=== PATIENT | female | born 1990 | race Caucasian/White ===

== ENCOUNTER → 2016-11-01 12:24 | Observation (INO) ==
[2016-11-01 12:24] LABS: Bilirubin,Urine Negative (Negative); Blood,Urine Negative (Negative); Clarity,Urine Cloudy (Clear); Color,Urine Yellow (Yellow); Glucose,Urine (UA) Normal (Normal); Ketones,Urine Negative (Negative); Leukocyte Esterase,Urine Negative (Negative); Nitrite,Urine Negative (Negative); PH,Urine 7.5 pH Units (5.0-8.0); Protein,Urine Negative (Neg-Trace); Specific Gravity,Urine 1.011 (1.010-1.025); Urobilinogen,Urine Normal (Normal)
[2016-11-01 12:26] LABS: Bacteria,Urine None Seen per hpf (None-Few); Hyaline Casts,Urine None Seen per lpf (None-Few); RBC,Urine 0-3 per hpf (0-3); Squamous Epithelial Cell,Urine Many per lpf (None-Few); WBC,Urine 0-3 per hpf (0-3)
--- NOTE | 2016-11-01 12:42 | Discharge Summary ---
Date of Encounter: 11/01/16 Time of Encounter: 12:13 - Discharge Diagnosis (1) Vaginal bleeding in Priority: Primary Status: Acute Comments: Patient arrives to labor and delivery from the office. She had vaginal bleeding yesterday and then had intercourse. She has not had any vaginal bleeding or discharge since. She states positive movement. She denies headache, epigastric pain, and visual disturbances. (2) Non-stress test reactive Priority: Secondary Status: Acute Comments: Reactive NST baseline 135 with moderate variability and 15 x 15 accels with no decels. Category I tracing. - Discharge Medications Home Medications: [id number]/Iron Fumarate/FA/Dss [ 19 Tablet] 1 tab PO DAILY 11/01/16 [ History] Allergies/Adverse Reactions: Allergies No Known Allergies Allergy (Verified 11/01/16 11:37) Data Procedures and tests throughout hospitalization: Laboratory Tests 11/01/16 11:55 Urine Color Yellow Urine Clarity Cloudy A Urine pH 7.5 Ur Specific [place] 1.011 Urine Protein Negative Urine Glucose (UA) Normal Urine Ketones Negative Urine Blood Negative Urine Nitrite Negative Urine Bilirubin Negative Urine Urobilinogen Normal Ur Leukocyte Esterase Negative Urine Microscopic RBC 0-3 Urine Microscopic WBC 0-3 Ur Squamous Epith Cells Many H Urine Bacteria None Seen Hyaline Casts None Seen Ur Culture Indicated? NO Labs on day of discharge: Labs from last 24 hours 11/01/16 11:55 Urine Color Yellow Urine Clarity Cloudy A Urine pH 7.5 Ur Specific [place] 1.011 Urine Protein Negative Urine Glucose (UA) Normal Urine Ketones Negative Urine Blood Negative Urine Nitrite Negative Urine Bilirubin Negative Urine Urobilinogen Normal Ur Leukocyte Esterase Negative Urine Microscopic RBC 0-3 Urine Microscopic WBC 0-3 Ur Squamous Epith Cells Many H Urine Bacteria None Seen Hyaline Casts None Seen Ur Culture Indicated? NO Date of admission: 11/01/16 11:25 Primary care physician: Kimberley May, Discharging clinician: Carlene Ayala Anticipated date of discharge: 11/01/16 - Patient Status Disposition: Home, Self-Care Condition: Good Functional capacity at discharge: independent ambulation - Discharge Instructions Follow Up With: Kimberley May MD [Primary Care Provider] - Jose Verdugo MD [Partnered Physician] - Additional Instructions: LABOR AND DELIVERY DISCHARGE INSTRUCTIONS Signs and Symptoms to be Reported to your Doctor Immediately: * Sudden gush, continuous or intermittent lead of fluid from vagina (note the time of gush and color of fluid) * Onset of bright red vaginal bleeding with or without pain (if you had a vaginal exam during this visit you may notice some dark red spotting. This is normal.) * Lower abdominal cramping or backache that is premenstrual-like feeling. * More than 6 contractions in one hour. * Burning during urination, having to urinate more frequently or pain in your mid-back. * A change in the baby's activity. This could be an increase or decrease in activity. * Severe headache which does not go away with tylenol. * Sudden swelling in the face, hands, arms and/or legs. * Upper abdominal pain - sometimes associated with heartburn or nausea and is not relieved by Maalox, Mylanta or Tums. * Dizziness or blurred vision or visual disturbances (seeing stars/lights). * Kick Counts One hour after a meal, lay down on one side in a quiet place. Count the number of birdie the baby moves during an hour. If less than 6 movements, notify your physician. Diet: *Force fluids - 8-10 tall glasses of fluid per day. May include popsicles and jello. *Limit caffeine - this includes chocolate, coffee, tea, any soft drink containing such as all son, Kulwant Yellow and Mountain Dew - Diet and Activity Activity: resume usual activities as tolerated Diet: regular diet Hospital Course PAYROLL ASSISTANT Time Attestation: Total time spent providing and/or coordinating discharge services: Time Spent: Less than 30 minutes Exam - Constitutional General appearance IM: cooperative, A&O X 3, pleasant - Additional comments: Uterus appropriate for gestation Reactive NST - 135 baseline with moderate variability and 15 x 15 accels with no decels. No contractions Cervical exam FT/thick/-2 SSE - no source of bleeding found. - Extremities Exam Extremities exam IM: Present: normal capillary refill, normal inspection, radial pulses palpable and symmetrical - Neurological Exam Neurological exam: alert, oriented X3
== END | disposition home or self-care (01) ==
LOC: 1NENULAB
PROVIDERS: ADMIT Obstetrics & Gynecology; ATTEND Obstetrics & Gynecology

== ENCOUNTER 2016-11-18 07:50 | Inpatient (IN) ==
[2016-11-18 07:44] LABS: Basophils % 0.2 %; Eosinophils # 0.1 K/mcL (0.0-0.6); Eosinophils % 0.8 %; Hematocrit 37.1 % (35.3-44.9); Hemoglobin 12.8 g/dL (11.5-15.4); Immature Granulocytes % 0.2 % (0-4); Lymphocytes # 3.5 K/mcL (0.6-4.6); Lymphocytes % 28.4 %; Mean Corpuscular HGB Conc 34.5 g/dL (31.6-35.5); Mean Corpuscular Hemoglobin 28.9 pg (28.0-33.3); Mean Corpuscular Volume 83.7 fL (83.0-100.0); Mean Platelet Volume 10.2 fL (9.4-12.4); Monocytes # 0.7 K/mcL (0.0-1.3); Monocytes % 5.8 %; Neutrophils # 7.9 K/mcL (1.6-8.9); Platelet Count 199 K/mcL (140-400); Red Blood Count 4.43 M/mcL (3.82-4.97); Red Cell Distribution Width 12.6 % (11.5-14.5); Segmented Neutrophils % 64.6 %
[~2016-11-18 07:50] MED LIST: Famotidine 20 MG/2 ML VIAL IVP PRN; Metoclopramide 10 MG/2 ML VIAL IVP PRN; Naloxone 0.4 MG/ML INJ IVP PRN; Penicillin G Potassium 5,000,000 UNIT in D5% in Water (Mini-Bag+) 100 ML IVPB ONE; Ringers Solution, Lactated 1,000 ML IVC SCH; Ringers Solution, Lactated 1,000 ML ONE
--- NOTE | 2016-11-18 08:47 | OB/GYN History & Physical ---
Date of Encounter: 11/18/16 Time of Encounter: 08:45 Assessment and Plan (1) premature rupture of membranes Current visit: Yes Status: Acute cont PCN for GBS ppx, allow labor to progress, if unchanged in 2 hrs, start pitocin, anticipate Qualifiers: Qualified Code(s): O42.919 - premature rupture of membranes, unspecified as to length of time between rupture and onset of labor, unspecified trimester History of Present Illness HPI: Ms. Vincent is a 26 year old female who presents to L&D with PPROM @ 5: 30AM today. She is sonia, no bleeding, feels good FM, patient on PCN Past Med Surg Social Fam HX - Past Medical History Medical history: no medical history Psychiatric history: depression - Past Surgical History Surgical History: other - Social History Smoking Status: Current every day smoker Smokeless Tobacco Status: No Alcohol use: none Drug use: none - Family History Mother Family Member Ethnicity: Non- Living Status: Hx Family Cancer: Yes (cervical and liver cancer) Obstetrical History - Pregnancies : 4 Medications and Allergies Hgm313/Iron Fumarate/FA/Dss [ 19 Tablet] 1 tab PO DAILY 11/01/16 [ History] 3 Allergy/AdvReac Type Severity Reaction Status Date / Time No Known Allergies Allergy Verified 11/01/16 11:37 Review of System OB All systems PM: reviewed and no additional remarkable complaints except as stated Exam - Constitutional Constitutional: well developed - HEENT HEENT: PERRL - Neck Neck exam: full ROM - Lungs Respiratory exam: CTAB - Cardiovascular Cardiovascular exam: RRR - Abdomen Abdomen: Present: gravid - Extremities Extremities exam: warm - Cervix Dilation: 2 Results Result Diagrams: 11/18/16 07:30 Abnormal lab results WBC 12.3 K/mcL (4.3-11.1) H 11/18/16 07:30 All other labs normal. - VTE Reasons for not Prescribing Prophylaxis: Treatment not Indicated - Low risk for VTE
[2016-11-18] MEDS ORDERED: Bupivacaine-MPF 0.25% 10 ML VIAL EP ONE (09:05)
[2016-11-18] MEDS ORDERED: Ondansetron 4 MG/2 ML VIAL IVP PRN ×2 (09:05→21:00)
[2016-11-18] MEDS ORDERED: *HR* FentaNYL (PF) 100 MCG/2 ML VIAL EP ONE (09:05)
[2016-11-18] MEDS ORDERED: Naloxone 0.4 MG/ML INJ IVP PRN ×2 (09:05→20:05)
[2016-11-18] MEDS ORDERED: EPHEDrine 50 MG/ML VIAL IVP PRN (09:05)
[2016-11-18] MEDS ORDERED: *HR* Ropivacaine/PF 0.2% 10 ML AMPUL EP ONE (09:05)
--- NOTE | 2016-11-18 09:09 | Anesthesia Evaluation PreOp ---
Date of Encounter: 11/18/16 Time of Encounter: 09:00 - Past History Planned Operation: FLAQUITA Cardiac History: Denies any Significant Hx Pulmonary History: Smoker, Pack/yr (12pk/yr) GUEST RELATIONS OFFICER History: Denies Any Significant HX Other Medical History: Hepatic (Hep C), Other (Meth use, 2015) Anesthesia History: No Prior Anesthetic Complications, Past Anesthesia ( Tonsillectomy) : Yes Alcohol Use: none Drug use: none Medications and Allergies Gtx528/Iron Fumarate/FA/Dss [ 19 Tablet] 1 tab PO DAILY 11/01/16 [ History] 3 Allergy/AdvReac Type Severity Reaction Status Date / Time No Known Allergies Allergy Verified 11/01/16 11:37 - Meds/Allergy Pre-op Review Medications Reviewed: Yes Allergies Reviewed: Yes Beta Blockers on Current Med List: No Anesthesia Results - Labs 11/18/16 07:30 Anesthesia Exam BP 114/59 P 76 T 97.7 Height: 5'0" Weight: 67kg NPO (# of Hours): 4 Pain Scale: 5 Pain Scale Used: Numeric (1 - 10) - HEENT Pupil (Motor): Pupils equal Mallampati: II Teeth: Edentulous Oral Opening: Greater than 3 - GUEST RELATIONS OFFICER LOC: Oriented GUEST RELATIONS OFFICER Motor: Normal RUE, Normal LUE, Normal RLE, Normal LLE, Normal Face GUEST RELATIONS OFFICER Sensory: Normal: RUE, LUE, RLE, LLE, Face - Cardiac Rhythm: Regular Murmur: None JVD: No Carotid Bruit: No - Pulmonary Breath Sounds: bilateral Clear Respiratory Effort: Symmetrical Anesthesia Assess/Plan ASA Score: 2 Modified Kelly Scale for Level of Consciousness: Cooperative, oriented, and tranquil Anesthetic Plan: Regional Autologous Blood: No Monitoring Plan: Standard Monitors Recovery Plan: Other
[2016-11-18] MEDS ORDERED: *HR* FentaNYL (PF) 100 MCG/2 ML VIAL ONE (09:12)
[2016-11-18] MEDS ORDERED: Epidural Premix (fent/bupiv) 110 ML EP ONE ×2 (09:13→18:09)
[2016-11-18] MEDS ORDERED: Bupivacaine-MPF 0.25% 10 ML VIAL ONE (09:13)
[2016-11-18] MEDS ORDERED: Epidural Premix (fent/bupiv) 110 ML EP SCH (09:15)
--- NOTE | 2016-11-18 11:16 | Anesthesia Procedures ---
Date of Encounter: 11/18/16 Time of Encounter: 10:40 Procedures: Anesthesia - Epidural/Spinal Patient ID/Chart reviewed: Yes Patient examined: Yes OB Eval: Gestational age: 36 OB Eval: : 4 OB Eval: Hx Para: 3 OB Eval: Dilated at (cm): 5 OB Eval: Contractions: Non-stressed pattern Consent Obtained: Yes Supplemental Oxygen: None/Room Air Site Prep: Aseptic Technique, Sterile prep and drape, Povidone-Iodine 1% Patient position: upright Local Anesthetic: Lidocaine 1% Amount of Local Anesthetic used: 3 Touhy Needle Gauge: 18 Touhy Needle Depth (cm): 5 Catheter Depth at Skin (cm): 13 Test Dose (1.5% Lido + Epi): Volume given (mls): 3 Test Dose Result: Negative Loading Dose: 0.25% Marcaine (mls): 10 Loading Dose: Fentanyl (mcg): 100 Loading Dose Administered: Thru Catheter Infusion Med: 0.125% Bupivacaine w/ 2 mcg/ml Fentanyl Infusion Rate (mls/hr): [address]: Tegaderm, Tape Interspace Used: L4-L5 Loss of Resistance (MARCELA): Yes Blood: No CSF: No Paresthesia: No Procedure: FLAQUITA placed 1st pass without any immediate noted complications. VSS Vitals + FHT's: 1040 BP 103/49 P 78 R 16 1102 BP 100/58 P 68 R 16 FHT 133
[2016-11-18] MEDS: Penicillin G Potassium 2,500,000 UNIT in D5% in Water 100 ML IVPB SCH ×2 (11:30→15:39)
--- NOTE | 2016-11-18 13:32 | OB Labor Progress Note ---
Date of Encounter: 11/18/16 Time of Encounter: 13:29 Labor Progress Note - Subjective Subjective: Pt resting comfortable with epidural at this time. - Cervix Cervix: 4/70/-2 - Heart Tones Heart Tones: 125/moderate/+accels/+variables - Pierpoint Pierpoint: difficult to trace, placed IUPC - Interventions Interventions: IUPC placed. - Plan Plan: Continue current management plan if no change start pitocin per policy utill adequate labor contractions Anticipate Dr. Verdugo updated and reviewed tracing with RN prior to IUPC placement.
[2016-11-18] MEDS ORDERED: 0.9 % Sodium Chloride 1,000 ML ONE (14:25)
[2016-11-18] MEDS ORDERED: Oxytocin 20 units/ LR 1000 mL 20 UNIT/1,000 ML BAG IVC SCH (16:00)
[2016-11-18] MEDS ORDERED: Lidocaine/EPI 1:200k 2% PF 20 ML VIAL ONE (19:34)
[2016-11-18] MEDS ORDERED: *HR* Morphine Sulfate/PF 5 MG/10 ML AMPUL ONE (19:45)
[2016-11-18] MEDS ORDERED: *HR* Meperidine 25 MG/ML SYRINGE IVP PRN (20:05)
[2016-11-18] MEDS ORDERED: *HR* Promethazine 25 MG/ML VIAL IVP PRN (20:05)
[2016-11-18] MEDS ORDERED: *HR* HYDROmorphone (PF) 1 MG/ML SYRINGE IVP PRN (20:05)
[2016-11-18] MEDS ORDERED: Ondansetron 4 MG/2 ML VIAL IVP ONE (20:05)
[2016-11-18] MEDS ORDERED: *HR* Phenylephrine 10 MG/ML VIAL ONE (20:10)
[2016-11-18] MEDS ORDERED: Ringers Solution, Lactated 1,000 ML IVC SCH ×2 (20:15→21:00)
--- NOTE | 2016-11-18 20:57 | OB/GYN Procedure Note ---
Section - Date of procedure: 11/18/16 Preop diagnosis: category 3 FHT tracing Post-op diagnosis: same Procedure: primary low transverse Surgeon: Jose Verdugo Estimated blood loss (cc): 400 Anesthesiologist: Alondra Allred Anesthesia Type: Epidural section complications: none Disposition: L&D Recovery Room Specimens: Placenta, Cord blood - Narrative Narrative: Patient was brought to the operating room with satisfactory epidural anesthesia. The abdomen was prepped and draped with betadine. A Pfannenstiel incision was made and carried sharply down to the level of fascia. The fascia was incised transversely. The fascia was dissected away from the underlying rectus muscles. With sharp and blunt dissection, rectus muscles were divided in midline. The perineum was entered bluntly. The incision was carried vertically with scissors. Transverse incision was made across the bladder peritoneum. The bladder was dissected away from the underlying lower uterine segment. Bladder retractor was placed to protect the bladder. The lower uterine segment was entered sharply with a scalpel. Incision was manually extended. Clear amniotic fluid was encountered. The 's head was pulled up and delivered easily as were the shoulders and body. The mouth and oropharynx were suctioned. The cord was clamped and cut. The was passed off to the nurse in satisfactory condition. APGARS 8/9, weight 2375g. Placenta was extracted completely and found to be intact. Uterus was explored and found to be empty. Uterus was delivered through the abdominal incision and massaged vigorously. Intravenous Pitocin was administered. The uterine incision , was closed primarily with a running locking stitch of 0 Vicryl with adequate hemostasis. Secondary running locking stitch was placed for extra strength to the wound. Cul-de-sac and gutters were suctioned vigorously. The uterus was returned to its proper anatomic position in the abdomen. The fascia was closed with a simple running stitch of 0 vicryl. The skin was closed with running subcuticular of 4-0 vicryl. Uterus was expressed of its contents. Patient was brought to the recovery room in satisfactory condition. There were no complications. There was 400 cc of blood loss. All sponge, needle, and instrument counts were reported to be correct.
[2016-11-18] MEDS ORDERED: Simethicone 80 MG TAB.CHEW PO PRN (21:00)
[2016-11-18] MEDS ORDERED: Sennosides 8.6 MG TABLET PO PRN (21:00)
[2016-11-18] MEDS ORDERED: Metoclopramide 10 MG/2 ML VIAL IVP PRN (21:00)
[2016-11-18] MEDS: Oxytocin 20 units/ LR 1000 mL 20 UNIT/1,000 ML BAG IVC SCH (23:00)
--- NOTE | 2016-11-18 23:04 | Anesthesia Evaluation Post Op ---
Date of Encounter: 11/19/16 Time of Encounter: 22:58 - Vital Signs Vital Signs: BP 106/47 P 88 R 16 T 98.1 - Lungs Lungs: Clear Ascult./Percussion - Airway Airway: Non-obstructed - Cardiovascular Regular Rate - Mental Status Mental Status: Alert & Oriented, Answers Appropriately - Pain Pain Scale: 2 Pain Scale used: Numeric (1 - 10) - Nausea Vomiting Nausea Vomiting: Not Present - Hydration Hydration: Ice chips, Bustamante catheter - Discharge PostOp Status: Transfer Patient to floor
[2016-11-18] MEDS ORDERED: Nicotine 21 MG PATCH.TD24 TD SCH (23:45)
[2016-11-19] MEDS: *HR* OxyCODONE/APAP 5/325 TABLET PO PRN ×4 (06:48→20:58)
[2016-11-19] MEDS: Oxytocin 20 units/ LR 1000 mL 20 UNIT/1,000 ML BAG IVC SCH (06:49)
[2016-11-19 07:19] LABS: Basophils % 0.2 %; Eosinophils # 0.1 K/mcL (0.0-0.6); Eosinophils % 0.4 %; Hematocrit 30.8 % (35.3-44.9); Immature Granulocytes % 0.4 % (0-4); Lymphocytes # 2.9 K/mcL (0.6-4.6); Mean Corpuscular HGB Conc 34.4 g/dL (31.6-35.5); Mean Corpuscular Hemoglobin 29.3 pg (28.0-33.3); Mean Corpuscular Volume 85.1 fL (83.0-100.0); Mean Platelet Volume 10.1 fL (9.4-12.4); Monocytes # 0.6 K/mcL (0.0-1.3); Monocytes % 4.5 %; Neutrophils # 10.3 K/mcL (1.6-8.9); Platelet Count 175 K/mcL (140-400); Red Blood Count 3.62 M/mcL (3.82-4.97); Red Cell Distribution Width 12.7 % (11.5-14.5); Segmented Neutrophils % 73.5 %
[2016-11-19 07:23] LABS: Hemoglobin 10.6 g/dL (11.5-15.4)
--- NOTE | 2016-11-19 08:26 | OB/GYN Progress Note ---
Date of Encounter: 11/19/16 Time of Encounter: 08:24 - Assessment and Plan (1) Status post delivery Current Visit: Yes Status: Acute Patient is doing well Pain is well controlled Lochia is moderate without clots Bustamante removed this morning, has not voided as of yet Passing flatus without difficulty Anticipating discharge tomorrow Subjective - Subjective Patient reports: appetite normal, pain well controlled, ambulating normally : doing well Objective - Vital Signs Latest vital signs: Vital Signs Temp Pulse Resp BP Pulse Ox 11/19/16 07:55 98.7 F 84 16 110/73 98 11/19/16 06:30 98.8 F 104 16 110/71 95 11/19/16 02:05 98.1 F 87 16 101/55 96 11/19/16 01:05 97.9 F 69 16 115/57 96 11/19/16 00:05 97.7 F 83 16 101/60 96 11/18/16 23:35 97.8 F 76 16 96/53 98 11/18/16 23:10 98.7 F 86 16 104/60 97 Intake and Output 11/18/16 11/19/16 11/19/16 23:59 07:59 15:59 Intake Total 1200 / 1200 1000 / 1000 Output Total 1700 / 1700 1175 / 1175 Balance -500 / -500 -175 / -175 Intake: IV Fluids 1000 / 1000 Pitocin 20 unit In 1,000 1000 / 1000 ml @ 125 mls/hr IVC .Q8H [facility] Rx#:[id number] Intake, Autotransfusion 1200 / 1200 Amount Output: Estimated Blood Loss 400 / 400 Catheter 1300 / 1300 1175 / 1175 Other: Weight 67.132 kg Patient Weight 11/19/16 23:59 Weight 67.132 kg - Exam Lungs: bilateral: normal Extremities: Present: normal Abdomen: Present: soft, tenderness (expected postoperative tenderness) Incision: Present: normal, dry, intact Uterus: Present: normal - Labs Labs: Laboratory Results - last 24 hr 11/19/16 07:01 WBC 14.0 H RBC 3.62 L Hgb 10.6 L D Hct 30.8 L MCV 85.1 MCH 29.3 MCHC 34.4 RDW 12.7 Plt Count 175 MPV 10.1 Immature Gran % 0.4 Seg Neutrophils % 73.5 Lymphocytes % 21.0 Monocytes % 4.5 Eosinophils % 0.4 Basophils % 0.2 Neutrophils # 10.3 H Lymphocytes # 2.9 Monocytes # 0.6 Eosinophils # 0.1 Basophils # 0.0
[2016-11-19] MEDS: Prenatal Vit/FA 1 EACH TABLET PO SCH (08:57)
[2016-11-19] MEDS: Ibuprofen 600 MG TABLET PO PRN (15:57)
[2016-11-20] MEDS: *HR* OxyCODONE/APAP 5/325 TABLET PO PRN ×4 (01:25→22:40)
[2016-11-20] MEDS: Ibuprofen 600 MG TABLET PO PRN ×4 (01:25→22:41)
--- NOTE | 2016-11-20 07:54 | OB/GYN Progress Note ---
Date of Encounter: 11/20/16 Time of Encounter: 07:51 - Assessment and Plan (1) Status post delivery Current Visit: Yes Status: Acute POD #2 w/ Dr. Verdugo on 11/18/16 Patient is doing well Pain is well controlled Lochia decreased to minimal Patient is now voiding on her own without difficulty Passing flatus without difficulty, no BMs as of yet Anticipating discharge tomorrow Subjective - Subjective Patient reports: appetite normal, voiding normally, pain well controlled, ambulating normally Objective - Vital Signs Latest vital signs: Vital Signs Temp Pulse Pulse Resp BP Pulse Ox 11/19/16 21:06 88 16 11/19/16 21:01 98.8 F 88 16 115/72 100 11/19/16 16:13 16 11/19/16 16:02 98.1 F 112 17 118/73 98 11/19/16 11:54 16 11/19/16 11:47 98.4 F 98 16 116/72 98 11/19/16 07:55 98.7 F 84 16 110/73 98 Intake and Output 11/19/16 11/19/16 11/20/16 15:59 23:59 07:59 Intake Total 1240 / 1240 250 / 250 Output Total 2600 / 2600 700 / 700 Balance -1360 / -1360 -450 / -450 Intake: Oral 1240 / 1240 250 / 250 Output: Urine 2600 / 2600 700 / 700 Other: Meal Breakfast Percent of Meal Consumed 100% 45% # Voids 3 - Exam Lungs: bilateral: normal Chest: Normal S1, Normal S2 Abdomen: Present: normal appearance, soft Incision: Present: normal, dry, intact Uterus: Present: normal, firm
[2016-11-20] MEDS: Prenatal Vit/FA 1 EACH TABLET PO SCH (09:56)
[2016-11-20 23:48] VITALS: BP 114/73
[2016-11-21] MEDS: Ibuprofen 600 MG TABLET PO PRN (04:57)
[2016-11-21] MEDS: *HR* OxyCODONE/APAP 5/325 TABLET PO PRN (04:58)
--- NOTE | 2016-11-21 08:37 | Discharge Summary ---
Date of Encounter: 11/21/16 Time of Encounter: 08:30 - Discharge Diagnosis (1) Status post primary low transverse section Priority: Primary Status: Acute Comments: Continue routine postop/ care discharge home today follow up with Dr. Verdugo in 2 weeks for incision check - Discharge Medications Prescriptions: OxyCODONE/APAP 5/325 [Percocet 5/325 MG] 1 each PO Q4HR PRN #30 tab PRN Reason: Moderate pain 4-6 Ibuprofen [Motrin] 600 mg PO Q6HR PRN #60 tab PRN Reason: Pain Azithromycin [Zithromax] 500 mg PO DAILY #5 tablet cephALEXin [Keflex] 500 mg PO TID #21 capsule Docusate [Colace] 100 mg PO BID PRN #60 capsule PRN Reason: Constipation Ferrous Sulfate [Iron] 325 mg PO DAILY #60 tablet Home Medications: [id number]/Iron Fumarate/FA/Dss [ 19 Tablet] 1 tab PO DAILY 11/01/16 [ History] Azithromycin [Zithromax] 500 mg PO DAILY #5 tablet 11/21/16 [Rx] Docusate [Colace] 100 mg PO BID 11/21/16 [Rx] Docusate [Colace] 100 mg PO BID PRN #60 capsule 11/21/16 [Rx] Ferrous Sulfate 325 mg PO DAILY tab 11/21/16 [Rx] Ferrous Sulfate [Iron] 325 mg PO DAILY #60 tablet 11/21/16 [Rx] Ibuprofen [Motrin] 600 mg PO Q6HR PRN tab 11/21/16 [Rx] Ibuprofen [Motrin] 600 mg PO Q6HR PRN #60 tab 11/21/16 [Rx] OxyCODONE/APAP 5/325 [Percocet 5/325 MG] 1 each PO Q4HR PRN #30 tab 11/21/16 [Rx ] Vit/FA 1 each PO DAILY tab 11/21/16 [Rx] cephALEXin [Keflex] 500 mg PO TID #21 capsule 11/21/16 [Rx] Allergies/Adverse Reactions: 3 Allergy/AdvReac Type Severity Reaction Status Date / Time No Known Allergies Allergy Verified 11/01/16 11:37 Data Procedures and tests throughout hospitalization: Laboratory Tests 11/18/16 11/19/16 07:30 07:01 WBC 12.3 H 14.0 H RBC 4.43 3.62 L Hgb 12.8 10.6 L D Hct 37.1 30.8 L MCV 83.7 85.1 MCH 28.9 29.3 MCHC 34.5 34.4 RDW 12.6 12.7 Plt Count 199 175 MPV 10.2 10.1 Immature Gran % 0.2 0.4 Seg Neutrophils % 64.6 73.5 Lymphocytes % 28.4 21.0 Monocytes % 5.8 4.5 Eosinophils % 0.8 0.4 Basophils % 0.2 0.2 Neutrophils # 7.9 10.3 H Lymphocytes # 3.5 2.9 Monocytes # 0.7 0.6 Eosinophils # 0.1 0.1 Basophils # 0.0 0.0 - Impressions ITS Impressions KUB X-Ray 11/18/16 19:54 IMPRESSION: No radio-opaque foreign body identified. D/ / 11/18/2016 21:30:53 Saul Lange MD / bcarter Interpreting Provider: Saul Lagne MD Date of admission: 11/18/16 07:50 Primary care physician: Kimberley May, Consults: 11/18/16 07:05 Consult to Supervisor [employer]) [CONS] Stat Reason For Exam: Reason for SW Consult: CORD STAT DUE TO HISTORY OF DRUG USE Discharging clinician: Esther Cid Anticipated date of discharge: 11/21/16 - Patient Status Disposition: Home, Self-Care Condition: Good Functional capacity at discharge: independent ambulation - Discharge Instructions Follow Up With: Kimberley May MD [Primary Care Provider] - Jose Verdugo MD [Partnered Physician] - - Diet and Activity Activity: increase activity as tolerated Diet: regular diet Hospital Course Procedures: OAR[facility] report reviewed prior to discharge by SYDNI Finn Reason for admission: rupture of membranes Delivery: section Episiotomy: none Laceration: none Other procedures: none complications: none Discharge diagnosis: delivery [place] baby: female (bottle feeding) Time Attestation: Total time spent providing and/or coordinating discharge services: Time Spent: Less than 30 minutes - VTE Reasons for not Prescribing Prophylaxis: Treatment not Indicated - Low risk for VTE Documentation of Mechanical Device: Graduated compression elastic hosiery Exam - Constitutional Vitals: Temp Pulse Resp BP Pulse Ox 98.3 F 89 14 114/73 100 11/20/16 20:45 11/20/16 20:45 11/20/16 20:45 11/20/16 20:45 11/20/16 20:45 General appearance IM: A&O X 3, pleasant, answers questions appropriately - Respiratory Respiratory exam: Present: CTAB - Cardiovascular Cardiovascular exam IM: Present: RRR, +S1, +S2 - GI/Abdominal GI/Abdominal exam IM: normal bowel sounds - Uterine Tone: Firm Uterus Position: 2 Fingers Below Umbilicus, Midline - Extremities Exam Extremities exam IM: Present: full ROM, normal capillary refill, normal inspection - Neurological Exam Neurological exam: alert, oriented X3, reflexes normal
[2016-11-21] MEDS: Prenatal Vit/FA 1 EACH TABLET PO SCH (08:41)
== END 2016-11-21 10:20 | disposition home or self-care (01) | DRG 540 ==
LOC: 1NENULAB → 1NENUOBS 23:03
PROVIDERS: ADMIT Student in an Organized Health Care Education/Training Program; ATTEND Student in an Organized Health Care Education/Training Program

== ENCOUNTER 2017-12-07 23:10 | Observation (INO) ==
[2017-12-07 23:38] LABS: Bilirubin,Urine Negative (Negative); Blood,Urine Large (Negative); Clarity,Urine Clear (Clear); Color,Urine Yellow (Yellow); Glucose,Urine (UA) Normal (Normal); Ketones,Urine Negative (Negative); Leukocyte Esterase,Urine Moderate (Negative); Nitrite,Urine Negative (Negative); Protein,Urine Negative (Neg-Trace); Urobilinogen,Urine Normal (Normal)
[2017-12-07 23:47] LABS: Bacteria,Urine Few per hpf (None-Few); RBC,Urine 0-3 per hpf (0-3); Squamous Epithelial Cell,Urine Moderate per lpf (None-Few); WBC,Urine 0-3 per hpf (0-3)
[2017-12-07 23:50] LABS: Amphetamine Screen,Urine Negative ng/mL (Cutoff=1000); Barbiturate Screen,Urine Negative ng/mL (Cutoff=200); Benzodiazepines Screen,Urine Negative ng/mL (Cutoff=200); Cannabinoid Screen,Urine Negative ng/mL (Cutoff = 50); Cocaine Screen,Urine Negative ng/mL (Cutoff= 300); Opiate Screen,Urine Negative ng/mL (Cutoff=300); Phencyclidine Screen,Urine Negative ng/mL (Cutoff=25)
--- NOTE | 2017-12-07 23:57 | OB/GYN Progress Note ---
Date of Encounter: 12/07/17 Time of Encounter: 23:43 - Assessment and Plan (1) 31 weeks gestation of Current Visit: Yes Status: Acute admitted for observation (2) Vaginal bleeding in Current Visit: No Status: Acute Continue to monitor bleeding Reviewed bleeding precautions with patient Subjective - Subjective Principal diagnosis: Vaginal bleeding Interval history: Patient is a 27 y/o at 31w2d presents to labor and delivery with complaints of vaginal bleeding that started around 2200. Patient states she went to the restroom and when she wiped she filled a baby wipe with bright red blood. Patient denies any blood clots or contractions but reports pressure. Patient reports urinary frequency but denies dysuria. Denies intercourse in past 48 hours. Patient reports good movement. Patient has had 3 vaginal deliveries and 1 c/s for failure to progress. Patient's last delivery was 1 year ago. Patient denies any complications with current . Placenta is posterior per anatomy scan. Patient is scheduled for an ultrasound next week for measuring size less than dates. Blood type is O+. Dr. Verdugo is patient's OB provider. Antepartum ROS: vaginal bleeding, movement normal, no loss of fluid, no contractions Objective - Vital Signs Vital Signs: Intake and Output 12/07/17 12/07/17 12/07/17 07:59 15:59 23:59 Other: Weight 63 kg Patient Weight 12/07/17 23:59 Weight 63 kg - Exam FHR: auscultation normal, category 1 FHR comments: 140 bpm moderate variability appropriate for gestational age Auscultation: bilateral: normal Abdomen: Present: normal appearance, soft, gravid Uterus: Present: normal Cervical dilation: FT Cervix effacement: 50 station: -3 Comments: Speculum exam: Moderate amount of dark blood noted. Lynn swabs used to clean out the blood. NO active bleeding noted. SVE after speculum exam no blood noted on glove peripad placed on patient will monitor for bleeding - Labs Labs: Abnormal lab results Urine Blood Large (Negative) H 12/07/17 23:25 Ur Leukocyte Esterase Moderate (Negative) H 12/07/17 23:25
== END 2017-12-08 02:10 | disposition home or self-care (01) ==
LOC: 1NENULAB
PROVIDERS: ADMIT Advanced Practice Midwife; ATTEND Advanced Practice Midwife

== ENCOUNTER 2017-12-21 22:33 | Observation (INO) ==
[2017-12-21 23:24] LABS: Bilirubin,Urine Negative (Negative); Blood,Urine Negative (Negative); Clarity,Urine Clear (Clear); Color,Urine Yellow (Yellow); Glucose,Urine (UA) Normal (Normal); Ketones,Urine Negative (Negative); Leukocyte Esterase,Urine Moderate (Negative); Nitrite,Urine Negative (Negative); Protein,Urine Negative (Neg-Trace); Specific Gravity,Urine 1.011 (1.010-1.025); Urobilinogen,Urine Normal (Normal)
[2017-12-21 23:34] LABS: Squamous Epithelial Cell,Urine Few per lpf (None-Few); WBC,Urine 0-3 per hpf (0-3)
[2017-12-21 23:35] LABS: Amphetamine Screen,Urine Negative ng/mL (Cutoff=1000); Barbiturate Screen,Urine Negative ng/mL (Cutoff=200); Benzodiazepines Screen,Urine Negative ng/mL (Cutoff=200); Cannabinoid Screen,Urine Negative ng/mL (Cutoff = 50); Cocaine Screen,Urine Negative ng/mL (Cutoff= 300); Opiate Screen,Urine Negative ng/mL (Cutoff=300); Phencyclidine Screen,Urine Negative ng/mL (Cutoff=25)
--- NOTE | 2017-12-22 00:51 | Discharge Summary ---
Date of Encounter: 12/22/17 Time of Encounter: 00:51 - Discharge Diagnosis (1) 33 weeks gestation of Priority: Secondary Status: Acute Comments: Follow-up with Dr. Verdugo as scheduled labor precautions discussed Discharge home (2) Abdominal cramping Priority: Primary Status: Acute Comments: UA - moderate leukocytes - culture pending Cramping relieved with po hydration - Discharge Medications Home Medications: Vit/FA 1 each PO DAILY tab 11/21/16 [Rx] Allergies/Adverse Reactions: 3 Allergy/AdvReac Type Severity Reaction Status Date / Time No Known Allergies Allergy Verified 12/21/17 22:46 Data Procedures and tests throughout hospitalization: Laboratory Tests 12/21/17 12/21/17 22:50 22:50 Urine Color Yellow Urine Clarity Clear Urine pH 7.0 Ur Specific [place] 1.011 Urine Protein Negative Urine Glucose (UA) Normal Urine Ketones Negative Urine Blood Negative Urine Nitrite Negative Urine Bilirubin Negative Urine Urobilinogen Normal Ur Leukocyte Esterase Moderate H Urine Microscopic WBC 0-3 Ur Squamous Epith Cells Few Ur Culture Indicated? YES A Urine Opiates Screen Negative Ur Barbiturates Screen Negative Ur Phencyclidine Scrn Negative Ur Amphetamines Screen Negative U Benzodiazepines Scrn Negative Urine Cocaine Screen Negative U Marijuana (THC) Screen Negative Ur Drug Screen Interp See Below Labs on day of discharge: Labs from last 24 hours 12/21/17 12/21/17 22:50 22:50 Urine Color Yellow Urine Clarity Clear Urine pH 7.0 Ur Specific [place] 1.011 Urine Protein Negative Urine Glucose (UA) Normal Urine Ketones Negative Urine Blood Negative Urine Nitrite Negative Urine Bilirubin Negative Urine Urobilinogen Normal Ur Leukocyte Esterase Moderate H Urine Microscopic WBC 0-3 Ur Squamous Epith Cells Few Ur Culture Indicated? YES A Urine Opiates Screen Negative Ur Barbiturates Screen Negative Ur Phencyclidine Scrn Negative Ur Amphetamines Screen Negative U Benzodiazepines Scrn Negative Urine Cocaine Screen Negative U Marijuana (THC) Screen Negative Ur Drug Screen Interp See Below Date of admission: 12/21/17 22:33 Discharging clinician: Carlene Maharaj Anticipated date of discharge: 12/22/17 - Patient Status Disposition: Home, Self-Care Condition: Good Functional capacity at discharge: independent ambulation Overall status at discharge: patient is progressing back to baseline - Discharge Instructions Follow Up With: Jose Verdugo MD [Partnered Physician] - Additional Instructions: LABOR AND DELIVERY DISCHARGE INSTRUCTIONS Signs and Symptoms to be Reported to your Doctor Immediately: * Sudden gush, continuous or intermittent lead of fluid from vagina (note the time of gush and color of fluid) * Onset of bright red vaginal bleeding with or without pain (if you had a vaginal exam during this visit you may notice some dark red spotting. This is normal.) * Lower abdominal cramping or backache that is premenstrual-like feeling. * More than 6 contractions in one hour. * Burning during urination, having to urinate more frequently or pain in your mid-back. * A change in the baby's activity. This could be an increase or decrease in activity. * Severe headache which does not go away with tylenol. * Sudden swelling in the face, hands, arms and/or legs. * Upper abdominal pain - sometimes associated with heartburn or nausea and is not relieved by Maalox, Mylanta or Tums. * Dizziness or blurred vision or visual disturbances (seeing stars/lights). * Kick Counts One hour after a meal, lay down on one side in a quiet place. Count the number of birdie the baby moves during an hour. If less than 6 movements, notify your physician. Diet: *Force fluids - 8-10 tall glasses of fluid per day. May include popsicles and jello. *Limit caffeine - this includes chocolate, coffee, tea, any soft drink containing such as all son, Kul[place] Yellow and Mountain Dew - Diet and Activity Activity: increase activity as tolerated Diet: regular diet Hospital Course EPIC ANALYST Reason for admission: other Discharge diagnosis: other Hospital course: Patient presents to labor and delivery with complaint of vaginal pressure off and on all day. She states a history of labor and deliveries. Vaginal exam was unchanged after 2 hours at 04/22/. labor precautions discussed. Patient reports she was given betamethasone injections 2 weeks ago. Discharged home with instructions to keep appointment with Dr. Verdugo on Friday. Time Attestation: Total time spent providing and/or coordinating discharge services: Exam - Constitutional General appearance IM: mild distress, A&O X 3, pleasant, no acute distress, answers questions appropriately - Respiratory Respiratory exam: Present: CTAB - Cardiovascular Cardiovascular exam IM: Present: RRR, +S1, +S2 - GI/Abdominal GI/Abdominal exam IM: normal bowel sounds, no peritoneal signs - Rectal Rectal exam: deferred - Uterine Tone: Firm - Extremities Exam Extremities exam IM: Present: normal capillary refill, normal inspection, radial pulses palpable and symmetrical - Neurological Exam Neurological exam: alert, CN II-XII intact, normal gait, oriented X3, reflexes normal, no focal deficits, strengths equal and symetr throughout - VTE Reasons for not Prescribing Prophylaxis: Treatment not Indicated - Low risk for VTE
== END 2017-12-22 01:00 | disposition home or self-care (01) ==
LOC: 1NENULAB
PROVIDERS: ADMIT Advanced Practice Midwife; ATTEND Advanced Practice Midwife

== ENCOUNTER 2017-12-24 02:09 | Observation (INO) ==
[2017-12-24 02:39] LABS: Bilirubin,Urine Small (Negative); Blood,Urine Trace-lysed (Negative); Clarity,Urine Clear (Clear); Color,Urine Yellow (Yellow); Glucose,Urine (UA) Normal (Normal); Ketones,Urine Negative (Negative); Leukocyte Esterase,Urine Negative (Negative); Nitrite,Urine Negative (Negative); Protein,Urine Trace mg/dL (Neg-Trace); Urobilinogen,Urine Normal (Normal)
[2017-12-24 02:50] LABS: Amphetamine Screen,Urine Negative ng/mL (Cutoff=1000); Barbiturate Screen,Urine Negative ng/mL (Cutoff=200); Benzodiazepines Screen,Urine Negative ng/mL (Cutoff=200); Cannabinoid Screen,Urine Negative ng/mL (Cutoff = 50); Cocaine Screen,Urine Negative ng/mL (Cutoff= 300); Opiate Screen,Urine Negative ng/mL (Cutoff=300); Phencyclidine Screen,Urine Negative ng/mL (Cutoff=25)
[2017-12-24 02:52] LABS: Bacteria,Urine Few per hpf (None-Few); RBC,Urine 0-3 per hpf (0-3); WBC,Urine 0-3 per hpf (0-3)
[2017-12-24] MEDS ORDERED: Ringers Solution, Lactated 1,000 ML IVC ONE (04:11)
[2017-12-24] MEDS ORDERED: Ringers Solution, Lactated 1,000 ML IVC SCH (04:15)
--- NOTE | 2017-12-24 06:50 | OB/GYN Progress Note ---
Date of Encounter: 12/24/17 Time of Encounter: 06:48 - Assessment and Plan (1) uterine contractions Current Visit: Yes Status: Acute No cervical change on serial cervical exams 2. 1 L fluid bolus given, patient states she feels contractions are stronger about further apart. Discuss plan of care with Dr. Lowery we will observe patient until a.m. AIR CONDITIONING TECHNICIAN appointment and then discharged home with no further cervical change. (2) 33 weeks gestation of Current Visit: No Status: Acute Subjective - Subjective Interval history: 33+5 weeks gestation presents to triage with complaints of uterine contractions. Patient states she started having contractions last evening occurring approximately every 6-7 minutes apart, well on her way from [place] she had 6 presented to triage with frequent contractions. Reports good movement, denies vaginal bleeding or leaking of fluid. Patient with history of 36 weeks deliveries with all other children. Has had betamethasone steroid course in late November. with last delivery, all other deliveries vaginal, surgical records in [facility] Antepartum ROS: movement normal, contractions, no loss of fluid, no vaginal bleeding Objective - Vital Signs Vital Signs: Intake and Output 12/23/17 12/23/17 12/24/17 15:59 23:59 07:59 Other: Weight 62.2 kg Patient Weight 12/24/17 23:59 Weight 62.2 kg - Exam FHR: auscultation normal FHR comments: Baseline 135 Abdomen: Present: soft, gravid Cervical dilation: / - Labs Labs: Abnormal lab results Urine Blood Trace-lysed (Negative) H 12/24/17 02:30 Urine Bilirubin Small (Negative) H 12/24/17 02:30
--- NOTE | 2017-12-24 09:33 | Discharge Summary ---
Date of Encounter: 12/24/17 Time of Encounter: 09:33 - Discharge Diagnosis (1) NST (non-stress test) reactive on surveillance Priority: Secondary Status: Acute Comments: FHR baseline 125bpm moderate variability +15x15 accels no decels noted. Cat 1 tracing (2) 33 weeks gestation of Priority: Primary Status: Acute Comments: false labor - Discharge Medications Home Medications: Vit/FA 1 each PO DAILY tab 11/21/16 [Rx] Famotidine [Pepcid] 20 mg PO BID 12/24/17 [History] hydrOXYzine HCl [Hydroxyzine HCl] 50 mg PO DAILY PRN 12/24/17 [History] Allergies/Adverse Reactions: 3 Allergy/AdvReac Type Severity Reaction Status Date / Time No Known Allergies Allergy Verified 12/21/17 22:46 Data Procedures and tests throughout hospitalization: Laboratory Tests 12/24/17 12/24/17 02:30 02:30 Urine Color Yellow Urine Clarity Clear Urine pH 7.0 Ur Specific [place] 1.010 Urine Protein Trace Urine Glucose (UA) Normal Urine Ketones Negative Urine Blood Trace-lysed H Urine Nitrite Negative Urine Bilirubin Small H Urine Urobilinogen Normal Ur Leukocyte Esterase Negative Urine Microscopic RBC 0-3 Urine Microscopic WBC 0-3 Urine Bacteria Few Ur Culture Indicated? NO Urine Opiates Screen Negative Ur Barbiturates Screen Negative Ur Phencyclidine Scrn Negative Ur Amphetamines Screen Negative U Benzodiazepines Scrn Negative Urine Cocaine Screen Negative U Marijuana (THC) Screen Negative Ur Drug Screen Interp See Below Labs on day of discharge: Labs from last 24 hours 12/24/17 12/24/17 02:30 02:30 Urine Color Yellow Urine Clarity Clear Urine pH 7.0 Ur Specific [place] 1.010 Urine Protein Trace Urine Glucose (UA) Normal Urine Ketones Negative Urine Blood Trace-lysed H Urine Nitrite Negative Urine Bilirubin Small H Urine Urobilinogen Normal Ur Leukocyte Esterase Negative Urine Microscopic RBC 0-3 Urine Microscopic WBC 0-3 Urine Bacteria Few Ur Culture Indicated? NO Urine Opiates Screen Negative Ur Barbiturates Screen Negative Ur Phencyclidine Scrn Negative Ur Amphetamines Screen Negative U Benzodiazepines Scrn Negative Urine Cocaine Screen Negative U Marijuana (THC) Screen Negative Ur Drug Screen Interp See Below Date of admission: 12/24/17 02:09 Primary care physician: Kimberley Diaz MD Discharging clinician: Esther A Shoemaker Anticipated date of discharge: 12/24/17 - Patient Status Disposition: Home, Self-Care Condition: Good Functional capacity at discharge: independent ambulation - Discharge Instructions Follow Up With: Kimberley Diaz MD [Primary Care Provider] - Jose Verdugo MD [Partnered Physician] - Hospital Course MICROBIOLOGICAL LABORATORY TECHNICIAN Hospital course: Dr. Jurado aware of POC and patient's status. Time Attestation: Total time spent providing and/or coordinating discharge services: Time Spent: Less than 30 minutes Exam - Constitutional General appearance IM: A&O X 3, pleasant, answers questions appropriately - Neurological Exam Neurological exam: alert, oriented X3, reflexes normal - Other Additional findings: 3/50/-2 per RN, no cervical change FHR 125 bpm moderate variability +15x15 accels no decels noted. Contractions 2- 7 min apart Cat 1 tracing - VTE Reasons for not Prescribing Prophylaxis: Treatment not Indicated - Low risk for VTE
== END 2017-12-24 09:36 | disposition home or self-care (01) ==
LOC: 1NENULAB
PROVIDERS: ADMIT Advanced Practice Midwife; ATTEND Advanced Practice Midwife

== ENCOUNTER 2017-12-24 22:08 | Inpatient (IN) ==
[~2017-12-24 22:08] MED LIST changes: +*HR* Nalbuphine 10 MG/ML AMPUL IVP PRN; +Ondansetron 4 MG/2 ML VIAL IVP PRN; -Penicillin G Potassium 5,000,000 UNIT in D5% in Water (Mini-Bag+) 100 ML IVPB ONE; -Ringers Solution, Lactated 1,000 ML IVC SCH
[2017-12-24] MEDS ORDERED: Ringers Solution, Lactated 1,000 ML IVC SCH (22:15)
--- NOTE | 2017-12-24 22:39 | OB/GYN History & Physical ---
Date of Encounter: 12/24/17 Time of Encounter: 22:35 Assessment and Plan (1) 33 weeks gestation of Current visit: Yes Status: Chronic (2) premature rupture of membranes Current visit: Yes Status: Acute Ampicillin and Zithromax ordered. Patient received steroids 12/11/17 and . Discussed plan of care with patient. We will treat with antibiotics and manage expectantly until she makes cervical change. She does need to decide if she would like to TOLAC vs repeat section. She states she would only want the if she can have her tubes tied at the same time. She then requests transfer to [facility] because she does not want to chance being from her baby. Phone call made to [facility] transfer line and spoke with Dr. Florence who accepts the patient. Qualifiers: PROM onset of labor timing: unspecified duration between rupture of membranes and onset of labor Qualified Code(s): O42.919 - premature rupture of membranes, unspecified as to length of time between rupture and onset of labor, unspecified trimester (3) Hepatitis C antibody positive in blood Current visit: No Status: Acute (4) History of section, low transverse Current visit: Yes Status: Acute (5) Tobacco smoking affecting in third trimester Current visit: Yes Status: Acute History of Present Illness Chief complaint: SROM HPI: Ms. Bailon is a 27 year old female G 5 P 0-4-0-4 AT 33 5/7 weeks presents to labor and delivery for SROM at 2030 today. She had been here earlier today and monitored for 4+ hours at 3 cm without cervical change and was discharged home. She denies any contractions at this time. She has not had any vaginal bleeding. Her is complicated by history of LTCS. She is considering TOLAC as she has had 3 prior vaginal deliveries. She also has hepatitis C, with normal LFTs. She states she has had a recent ultrasound that confirmed vertex presentation and very low. Past Med Surg Social Fam HX - Past Medical History Source: patient Medical history: hepatitis (C) Psychiatric history: anxiety, depression - Past Surgical History Surgical History: , other Additional surgical history: T&A - Social History Smoking Status: Current every day smoker Packs per day: 1 Smokeless Tobacco Status: No Alcohol use: none Drug use: none - Family History Mother Family Member Ethnicity: Non- Living Status: Hx Family Cardiac Disorders: No Hx Family Respiratory Disorders: No Hx Family Cancer: Yes Hx Family GI Disorders: No Hx Family Genitourinary Disorders: No Hx Family Endocrine Disorder: No Hx Family Musculoskeletal Disorders: No Hx Family Neuromuscular Disorders: No Hx Family Neurologic Disorders: No Hx Family HEENT Disorders: No Hx Family Autoimmune Disorders: No Hx Family Reproductive Disorders: No Hx Family Psychosocial Disorders: No Hx Family Medical Disorders: No Obstetrical History - Pregnancies : 5 Para: 4 Term: 0 : 4 Ab's: 0 Livin - History/Complications History/Complications: 4 prior deliveries. Medications and Allergies Vit/FA 1 each PO DAILY tab 11/21/16 [Rx] Famotidine [Pepcid] 20 mg PO BID 12/24/17 [History] hydrOXYzine HCl [Hydroxyzine HCl] 50 mg PO DAILY PRN 12/24/17 [History] 3 Allergy/AdvReac Type Severity Reaction Status Date / Time No Known Allergies Allergy Verified 12/21/17 22:46 Review of System OB All systems PM: reviewed and no additional remarkable complaints except as stated Exam - Constitutional Constitutional: well developed, well nourished, no acute distress, average body habitus - HEENT HEENT: EOMI - Lungs Respiratory exam: CTAB - Cardiovascular Cardiovascular exam: RRR - Abdomen Abdomen: Present: bowel sounds normal, gravid, non tender - Cervix Dilation: 3 (Grossly ruptured with +nitrazine on fluid pouring from vagina) - Comments Comments: category 1 FHR tracing, baseline 130 [place] is without contractions
[2017-12-24 22:43] LABS: Amphetamine Screen,Urine Negative ng/mL (Cutoff=1000); Barbiturate Screen,Urine Negative ng/mL (Cutoff=200); Benzodiazepines Screen,Urine Negative ng/mL (Cutoff=200); Cannabinoid Screen,Urine Negative ng/mL (Cutoff = 50); Cocaine Screen,Urine Negative ng/mL (Cutoff= 300); Opiate Screen,Urine Negative ng/mL (Cutoff=300); Phencyclidine Screen,Urine Negative ng/mL (Cutoff=25)
[2017-12-24 22:44] LABS: Basophils % 0.2 %; Eosinophils # 0.1 K/mcL (0.0-0.6); Eosinophils % 1.1 %; Hematocrit 37.6 % (35.3-44.9); Hemoglobin 13.3 g/dL (11.5-15.4); Immature Granulocytes % 0.6 % (0-4); Lymphocytes # 2.1 K/mcL (0.6-4.6); Mean Corpuscular HGB Conc 35.4 g/dL (31.6-35.5); Mean Corpuscular Hemoglobin 28.9 pg (28.0-33.3); Mean Corpuscular Volume 81.7 fL (83.0-100.0); Mean Platelet Volume 10.1 fL (9.4-12.4); Monocytes # 0.6 K/mcL (0.0-1.3); Platelet Count 136 K/mcL (140-400); Red Cell Distribution Width 12.9 % (11.5-14.5); Segmented Neutrophils % 65.1 %
[2017-12-24 22:48] LABS: Neutrophils # 5.3 K/mcL (1.6-8.9)
[2017-12-24] MEDS ORDERED: Ampicillin 2 GM VIAL ONE (22:49)
[2017-12-24 23:00] LABS: Reactive Lymphocytes Present (Not Present); Toxic Granulation Present (Not Present)
[2017-12-24] MEDS ORDERED: Ampicillin 2 GM in 0.9 % Sodium Chloride Mini Bag 100 ML IVPB ONE (23:00)
[2017-12-24] MEDS ORDERED: Azithromycin 500 MG in D5% in Water 250 ML IVPB SCH (23:00)
[2017-12-24 23:01] LABS: Platelet Estimate Normal (Normal)
[2017-12-25] MEDS ORDERED: Ampicillin 1,000 MG in 0.9 % Sodium Chloride Mini Bag 100 ML IVPB SCH (03:00)
== END 2017-12-24 23:30 | disposition critical access hospital (66) | DRG 566 ==
LOC: 1NENULAB
PROVIDERS: ADMIT Advanced Practice Midwife; ATTEND Advanced Practice Midwife